=== PATIENT | male | born 1940 | race Caucasian/White ===

== ENCOUNTER 2017-03-15 05:36 | Observation (INO) | payer OTHER ==
[~2017-03-15] VITALS: Ht 170.2 cm; Wt 70.3 kg
[~2017-03-15 05:36] MED LIST: AEC81 PO; TRAM50TA4 PO
[2017-03-15] MEDS ORDERED: ASPIRIN 325 MG TABLET ONE (05:50)
[2017-03-15 06:03] LABS: BASOPHILS % (AUTO) 0.7 % (0.0-5.0); EOSINOPHILS % (AUTO) 1.1 % (0.0-8.0); HEMATOCRIT 47.3 % (42-54); LYMPHOCYTES % (AUTO) 11.5 % (21.0-51.0); MEAN CORPUSCULAR HEMOGLOBIN 30.2 pg (27.0-33.0); MEAN CORPUSCULAR HGB CONC 33.8 g/dL (32.0-36.0); MEAN CORPUSCULAR VOLUME 89.4 fL (79-99); MONOCYTES % (AUTO) 14.6 % (3.0-13.0); NEUTROPHILS % (AUTO) 72.1 % (40.0-77.0); PLATELET COUNT (AUTO) 236 K/uL (130-400); RED BLOOD CELL COUNT(AUTO) 5.29 MIL/uL (4.50-6.20); RED CELL DISTRIBUTION WIDTH 15.1 % (11.0-15.5); WHITE BLOOD COUNT (AUTO) 15.6 K/uL (4.8-10.8)
[2017-03-15 06:29] LABS: CREATINE KINASE MB < 0.5 ng/mL (0.5-3.6); CREATINE KINASE, TOTAL 78 U/L (21-232)
[2017-03-15] MEDS ORDERED: NITROGLYCERIN 1GM/1 INCH PACKET TD ONE (06:33)
[2017-03-15 06:38] LABS: CREATININE 1.1 mg/dL (0.5-1.5); POTASSIUM 4.3 mmol/L (3.5-5.1)
[2017-03-15 06:43] LABS: ALBUMIN 3.6 g/dL (3.5-5.0); BILIRUBIN,TOTAL 1.1 mg/dL (0.2-1.0); TOTAL PROTEIN, SERUM 8.3 g/dL (6.0-8.3)
[2017-03-15] MEDS ORDERED: IPRATROPIUM/ALBUTEROL SULFATE 3 ML SOLUTION IH ONE ×2 (06:52→10:45)
[2017-03-15] MEDS ORDERED: METHYLPREDNISOLONE SOD SUCC 125MG/2ML VIAL ONE (07:10)
[2017-03-15] MEDS ORDERED: AZITHROMYCIN 250 MG TABLET PO ONE (07:11)
[2017-03-15 08:54] VITALS: BP 132/85
[2017-03-15] MEDS ORDERED: HYDRALAZINE HCL 20 MG/ML VIAL IV PRN (09:45)
[2017-03-15] MEDS ORDERED: ACETAMINOPHEN-CODEINE 300/30MG TAB PO PRN (09:45)
[2017-03-15] MEDS: METHYLPREDNISOLONE SOD SUCC 125MG/2ML VIAL IV SCH ×2 (09:45→16:46)
[2017-03-15] MEDS ORDERED: LACTULOSE 20 GM/30 ML UDCUP PO PRN (09:45)
[2017-03-15] MEDS ORDERED: MAG HYDROX/AL HYDROX/SIMETH ES 30 ML SUSP UDCUP PO PRN (09:45)
[2017-03-15] MEDS ORDERED: ACETAMINOPHEN 325 MG TAB PO PRN ×2 (09:45)
[2017-03-15] MEDS ORDERED: ONDANSETRON HCL 4 MG/2 ML VIAL IV PRN (09:45)
[2017-03-15] MEDS ORDERED: NITROGLYCERIN 0.4 MG SL TAB SL PRN (09:45)
[2017-03-15] MEDS ORDERED: MORPHINE SULFATE 4 MG/1ML SYG IV PRN (09:45)
[2017-03-15] MEDS ORDERED: MORPHINE SULFATE 2 MG/ML 1ML SYG IV PRN (09:45)
[2017-03-15] MEDS: ACETAMINOPHEN-CODEINE 300/30MG TAB PO PRN (10:09)
[2017-03-15] MEDS: IPRATROPIUM/ALBUTEROL SULFATE 3 ML SOLUTION IH SCH ×2 (10:40→18:26)
[2017-03-15] MEDS: DOXYCYCLINE 100MG+NS 250ML 250 ML IV SCH ×2 (10:45→20:33)
[2017-03-15 11:36] VITALS: BP 128/88
[2017-03-15 11:54] LABS: CREATINE KINASE MB < 0.5 ng/mL (0.5-3.6); CREATINE KINASE, TOTAL 54 U/L (21-232); MYOGLOBIN 52 ng/mL (10-92); TROPONIN I < 0.04 ng/mL (0.00-0.06)
[2017-03-15] MEDS: SODIUM CHLORIDE 0.9% 1000ML 1,000 ML IV SCH ×2 (12:48→23:26)
[2017-03-15 16:09] VITALS: BP 106/63
[2017-03-15 18:38] LABS: CREATINE KINASE MB < 0.5 ng/mL (0.5-3.6); CREATINE KINASE, TOTAL 54 U/L (21-232); MYOGLOBIN 44 ng/mL (10-92); TROPONIN I < 0.04 ng/mL (0.00-0.06)
[2017-03-15 19:00] VITALS: BP 146/97
[2017-03-15] MEDS: METOPROLOL TARTRATE 25 MG TAB PO SCH (20:33)
[2017-03-15] MEDS: FAMOTIDINE/PF 20 MG/2 ML VIAL IV SCH (20:33)
[2017-03-15 23:00] VITALS: BP 110/71
[2017-03-16] MEDS: IPRATROPIUM/ALBUTEROL SULFATE 3 ML SOLUTION IH SCH ×4 (00:02→19:08)
[2017-03-16] MEDS: METHYLPREDNISOLONE SOD SUCC 125MG/2ML VIAL IV SCH ×2 (01:07→08:14)
[2017-03-16 03:00] VITALS: BP 107/66
[2017-03-16] MEDS: SODIUM CHLORIDE 0.9% 1000ML 1,000 ML IV SCH (06:13)
[2017-03-16 06:34] LABS: HEMATOCRIT 40.7 % (42-54); MEAN CORPUSCULAR HEMOGLOBIN 29.9 pg (27.0-33.0); MEAN CORPUSCULAR HGB CONC 33.6 g/dL (32.0-36.0); MEAN CORPUSCULAR VOLUME 89.1 fL (79-99); PLATELET COUNT (AUTO) 195 K/uL (130-400); RED BLOOD CELL COUNT(AUTO) 4.57 MIL/uL (4.50-6.20); RED CELL DISTRIBUTION WIDTH 14.8 % (11.0-15.5); WHITE BLOOD COUNT (AUTO) 25.7 K/uL (4.8-10.8)
[2017-03-16 06:52] LABS: CREATININE 1.3 mg/dL (0.5-1.5); POTASSIUM 3.9 mmol/L (3.5-5.1)
[2017-03-16 07:00] VITALS: BP 132/76
[2017-03-16 07:59] LABS: B-TYPE NATRIURETIC PEPTIDE 107 pg/mL (0-100)
[2017-03-16] MEDS: FAMOTIDINE/PF 20 MG/2 ML VIAL IV SCH ×2 (08:07→19:43)
[2017-03-16] MEDS: ASPIRIN 81 MG EC TAB PO SCH (08:07)
[2017-03-16] MEDS: METOPROLOL TARTRATE 25 MG TAB PO SCH ×2 (08:07→19:44)
[2017-03-16] MEDS: DOXYCYCLINE 100MG+NS 250ML 250 ML IV SCH ×2 (08:14→19:44)
[2017-03-16 11:00] VITALS: BP 113/76
[2017-03-16 15:37] VITALS: BP 133/94
[2017-03-16] MEDS: METHYLPREDNISOLONE SOD SUCC 40MG/ML 1ML IVP SCH ×2 (17:22→23:41)
[2017-03-16 19:00] VITALS: BP 126/93
[2017-03-16] MEDS: GUAIFENESIN-DM 200/20 MG 10 ML PO PRN ×2 (19:43→23:41)
[2017-03-16] MEDS: ACETAMINOPHEN-CODEINE 300/30MG TAB PO PRN (19:44)
[2017-03-16 23:00] VITALS: BP 135/79
[2017-03-17] MEDS ORDERED: IPRATROPIUM 0.5 MG/2.5 ML INH IH ONE (00:18)
[2017-03-17] MEDS ORDERED: ALBUTEROL SULFATE 0.083% 2.5 MG/3 ML INH IH ONE (00:18)
[2017-03-17 03:00] VITALS: BP 158/95
[2017-03-17] MEDS: IPRATROPIUM/ALBUTEROL SULFATE 3 ML SOLUTION IH SCH ×2 (07:10)
[2017-03-17 07:25] LABS: HEMATOCRIT 39.6 % (42-54); MEAN CORPUSCULAR HEMOGLOBIN 30.3 pg (27.0-33.0); MEAN CORPUSCULAR HGB CONC 34.2 g/dL (32.0-36.0); MEAN CORPUSCULAR VOLUME 88.5 fL (79-99); PLATELET COUNT (AUTO) 218 K/uL (130-400); RED BLOOD CELL COUNT(AUTO) 4.48 MIL/uL (4.50-6.20); RED CELL DISTRIBUTION WIDTH 15.2 % (11.0-15.5); WHITE BLOOD COUNT (AUTO) 25.8 K/uL (4.8-10.8)
[2017-03-17 07:41] LABS: CREATININE 1.2 mg/dL (0.5-1.5); POTASSIUM 4.2 mmol/L (3.5-5.1)
[2017-03-17 08:00] VITALS: BP 141/81
[2017-03-17] MEDS ORDERED: ENOXAPARIN SODIUM 40 MG/0.4 ML SYRINGE SQ SCH (09:00)
[2017-03-17] MEDS: ASPIRIN 81 MG EC TAB PO SCH (09:07)
[2017-03-17] MEDS: FAMOTIDINE/PF 20 MG/2 ML VIAL IV SCH (09:07)
[2017-03-17] MEDS: METOPROLOL TARTRATE 25 MG TAB PO SCH (09:07)
[2017-03-17] MEDS: METHYLPREDNISOLONE SOD SUCC 40MG/ML 1ML IVP SCH (09:07)
[2017-03-17] MEDS: DOXYCYCLINE 100MG+NS 250ML 250 ML IV SCH (09:07)
[2017-03-17] MEDS ORDERED: PRED20TA3 PO (10:13)
[2017-03-17] MEDS ORDERED: DOXY100T2 PO (10:13)
== END 2017-03-17 11:05 | disposition home or self-care (01) ==
LOC: EDH 05:36 → EDHIP 07:20 → 3CH 08:36
PROVIDERS: ADMIT Internal Medicine; ATTEND Internal Medicine
DX: J20.9 Acute bronchitis, unspecified (principal); I25.10 Atherosclerotic heart disease of native coronary artery without angina pectoris; R53.81 Other malaise; I10 Essential (primary) hypertension; Z72.0 Tobacco use; Z95.1 Presence of aortocoronary bypass graft; Z95.5 Presence of coronary angioplasty implant and graft
CPT/HCPCS: 36415 ×3; 71045; 80048 ×2; 80053; 82550 ×3; 82553 ×3; 83874 ×2; 83880 ×2; 84484 ×3; 85025; 85027 ×2; 86141; 87633; 93005; 93306; 94640 ×9; 94664; 96361; 96365; 96366 ×3; 96372; 96375 ×2; 96376 ×2; 99285; A4510; G0378 ×52; J1650; J2920 ×3; J2930 ×4; J3490 ×7; J7030; 71010

== ENCOUNTER 2017-05-01 19:48 | Observation (INO) | payer OTHER ==
[~2017-05-01] VITALS: Ht 170.2 cm; Wt 68.5 kg
[~2017-05-01 19:48] MED LIST changes: +DOXY100T2 PO; +PRED20TA3 PO
[2017-05-01 20:22] LABS: BASOPHILS % (AUTO) 0.4 % (0.0-5.0); EOSINOPHILS % (AUTO) 0.8 % (0.0-8.0); HEMATOCRIT 45.7 % (42-54); LYMPHOCYTES % (AUTO) 10.1 % (21.0-51.0); MEAN CORPUSCULAR HEMOGLOBIN 29.4 pg (27.0-33.0); MEAN CORPUSCULAR HGB CONC 33.8 g/dL (32.0-36.0); MEAN CORPUSCULAR VOLUME 87.2 fL (79-99); MONOCYTES % (AUTO) 7.3 % (3.0-13.0); NEUTROPHILS % (AUTO) 81.4 % (40.0-77.0); PLATELET COUNT (AUTO) 505 K/uL (130-400); RED BLOOD CELL COUNT(AUTO) 5.25 MIL/uL (4.50-6.20); RED CELL DISTRIBUTION WIDTH 15.7 % (11.0-15.5); WHITE BLOOD COUNT (AUTO) 19.9 K/uL (4.8-10.8)
[2017-05-01 20:35] LABS: CREATININE 1.5 mg/dL (0.5-1.5); POTASSIUM 3.5 mmol/L (3.5-5.1)
[2017-05-01 20:36] LABS: INR 1.01 (0.85-1.15); PARTIAL THROMBOPLASTIN TIME 31.5 SEC (26.3-35.5); PROTHROMBIN TIME 10.6 SEC (9.6-11.6)
[2017-05-01 20:40] LABS: ALBUMIN 2.9 g/dL (3.5-5.0); BILIRUBIN,TOTAL 0.8 mg/dL (0.2-1.0); TOTAL PROTEIN, SERUM 8.1 g/dL (6.0-8.3)
[2017-05-01] MEDS ORDERED: METRONIDAZOLE 500MG/100ML BAG 100 ML ONE (22:32)
[2017-05-01] MEDS ORDERED: ONDANSETRON HCL 4 MG/2 ML VIAL ONE (22:32)
[2017-05-01] MEDS ORDERED: MORPHINE SULFATE 4 MG/1ML SYG ONE (22:33)
[2017-05-02] MEDS ORDERED: MEROPENEM 1 GM VIAL ONE (03:39)
[2017-05-02] MEDS ORDERED: SODIUM CHLORIDE 0.9% 1000ML 1,000 ML IV ONE (03:39)
[2017-05-02 04:38] VITALS: BP 119/73
[2017-05-02 05:30] LABS: HEMATOCRIT 41.4 % (42-54); MEAN CORPUSCULAR HEMOGLOBIN 29.5 pg (27.0-33.0); MEAN CORPUSCULAR HGB CONC 34.1 g/dL (32.0-36.0); MEAN CORPUSCULAR VOLUME 86.4 fL (79-99); PLATELET COUNT (AUTO) 373 K/uL (130-400); RED BLOOD CELL COUNT(AUTO) 4.78 MIL/uL (4.50-6.20); RED CELL DISTRIBUTION WIDTH 15.7 % (11.0-15.5); WHITE BLOOD COUNT (AUTO) 18.5 K/uL (4.8-10.8)
[2017-05-02 05:38] LABS: CREATININE 1.5 mg/dL (0.5-1.5)
[2017-05-02 05:40] LABS: INR 1.02 (0.85-1.15); PARTIAL THROMBOPLASTIN TIME 30.7 SEC (26.3-35.5); PROTHROMBIN TIME 10.7 SEC (9.6-11.6)
[2017-05-02] MEDS ORDERED: MORPHINE SULFATE 2 MG/ML 1ML SYG ONE (05:54)
[2017-05-02 06:18] LABS: BAND NEUTROPHILS % (MANUAL) 4 % (0-2); EOSINOPHILS % (MANUAL) 2 % (1-6); LYMPHOCYTES % (MANUAL) 12 % (22-44); MONOCYTES % (MANUAL) 9 % (2-9); REACTIVE LYMPHOCYTES 1 % (0-0); SEGMENTED NEUTROPHILS % 72 % (40-70)
[2017-05-02 06:19] LABS: MAN.DIFF COMMENT-IMPRESSION MANUAL DIFFERENTIAL; PLATELET MORPHOLOGY COMMENT ADEQUATE
[2017-05-02] MEDS ORDERED: IPRATROPIUM/ALBUTEROL SULFATE 3 ML SOLUTION IH PRN (07:15)
[2017-05-02 07:38] VITALS: BP 114/65
[2017-05-02 11:14] VITALS: BP 100/61
[2017-05-02] MEDS: MORPHINE SULFATE 2 MG/ML 1ML SYG IVP PRN ×2 (13:59→20:16)
[2017-05-02 16:29] VITALS: BP 107/69
[2017-05-02] MEDS ORDERED: PEG 3350/NA SULF,BICARB,CL/KCL 4000 ML SOLN PO SCH (17:00)
[2017-05-02 19:08] VITALS: BP 105/56
[2017-05-02 23:47] VITALS: BP 120/75
[2017-05-03 03:35] VITALS: BP 120/69
[2017-05-03] MEDS: MORPHINE SULFATE 2 MG/ML 1ML SYG IVP PRN ×4 (03:46→21:23)
[2017-05-03] MEDS ORDERED: MEROPENEM 1 GM VIAL IVP SCH (04:00)
[2017-05-03 04:30] LABS: HEMATOCRIT 38.9 % (42-54); MEAN CORPUSCULAR HEMOGLOBIN 29.7 pg (27.0-33.0); MEAN CORPUSCULAR HGB CONC 34.2 g/dL (32.0-36.0); MEAN CORPUSCULAR VOLUME 86.8 fL (79-99); PLATELET COUNT (AUTO) 351 K/uL (130-400); RED BLOOD CELL COUNT(AUTO) 4.48 MIL/uL (4.50-6.20); RED CELL DISTRIBUTION WIDTH 15.5 % (11.0-15.5); WHITE BLOOD COUNT (AUTO) 13.2 K/uL (4.8-10.8)
[2017-05-03 04:40] LABS: CREATININE 1.1 mg/dL (0.5-1.5); POTASSIUM 3.8 mmol/L (3.5-5.1)
[2017-05-03 07:27] VITALS: BP 138/68
[2017-05-03 11:31] VITALS: BP 108/81
[2017-05-03 16:33] VITALS: BP 137/92
[2017-05-03] MEDS ORDERED: PEG 3350/NA SULF,BICARB,CL/KCL 4000 ML SOLN PO ONE (17:45)
[2017-05-03 19:10] VITALS: BP 168/108
[2017-05-03 20:54] VITALS: BP 161/88
[2017-05-03] MEDS ORDERED: MORPHINE SULFATE 2 MG/ML 1ML SYG IVP PRN (21:15)
[2017-05-03] MEDS ORDERED: ONDANSETRON HCL 4 MG/2 ML VIAL IVP PRN (21:15)
[2017-05-03] MEDS ORDERED: ACETAMINOPHEN 325 MG TAB PO PRN (21:15)
[2017-05-03] MEDS ORDERED: CLONIDINE HCL 0.1 MG TABLET PO PRN (21:15)
[2017-05-03] MEDS ORDERED: METRONIDAZOLE 500MG/100ML BAG 100 ML IVPB SCH (23:00)
[2017-05-03] MEDS: IPRATROPIUM/ALBUTEROL SULFATE 3 ML SOLUTION IH SCH (23:06)
[2017-05-04] VITALS (15 sets, daily range): BP systolic 79–148; BP diastolic 48–99
[2017-05-04] MEDS: IPRATROPIUM/ALBUTEROL SULFATE 3 ML SOLUTION IH SCH ×2 (06:43→11:08)
[2017-05-04] MEDS ORDERED: PROPOFOL 10 MG/ML 20ML VIAL IV ONE (12:50)
[2017-05-04] MEDS ORDERED: PHENYLEPHRINE HCL 10 MG/ML 1ML VIAL IV ONE (12:58)
[2017-05-04] MEDS ORDERED: METRONIDAZOLE 500 MG TABLET PO SCH (15:08)
[2017-05-05] MEDS ORDERED: LEVOFLOXACIN 500 MG TABLET PO SCH (09:00)
== END 2017-05-04 18:35 | disposition home or self-care (01) ==
LOC: EDH 19:48 → EDHIP 05-02 00:20 → 2AH 05-02 04:30 → 3AH 05-03 19:34
PROVIDERS: ADMIT Family Medicine; ATTEND Family Medicine
DX: K92.1 Melena (principal); K63.89 Other specified diseases of intestine; K57.30 Diverticulosis of large intestine without perforation or abscess without bleeding; C34.90 Malignant neoplasm of unspecified part of unspecified bronchus or lung; R55 Syncope and collapse; R10.9 Unspecified abdominal pain; I10 Essential (primary) hypertension; I25.10 Atherosclerotic heart disease of native coronary artery without angina pectoris; Z85.118 Personal history of other malignant neoplasm of bronchus and lung; Z87.891 Personal history of nicotine dependence; Z90.49 Acquired absence of other specified parts of digestive tract; Z95.5 Presence of coronary angioplasty implant and graft
CPT/HCPCS: 36415 ×3; 45380; 74176; 80048 ×2; 80053; 85025 ×2; 85027; 85610 ×2; 85730 ×2; 86850; 86900; 86901; 87046; 87205; 87507; 88305; 94640 ×3; 94664; 96374; 96376 ×2; 97039; 97116 ×2; 97161; 99285; A4510; G0378 ×66; G8978; G8979; G8980; G8981; G8982; G8983; J2185; J2270; J2370; J2405; J2704; J3490; J7030

== ENCOUNTER 2017-11-24 09:44 | Observation (INO) | payer OTHER ==
[2017-11-23 15:31] LABS: APPEARANCE,URINE CLEAR (CLEAR); BILIRUBIN,URINE MODERATE (NEGATIVE); COLOR,URINE YELLOW (YELLOW); GLUCOSE, URINE (UA) NEGATIVE (NEGATIVE); KETONES,URINE 5 mg/dL (NEGATIVE); LEUKOCYTE ESTERASE ,URINE MODERATE (NEGATIVE); NITRATE,URINE POSITIVE (NEGATIVE); OCCULT BLOOD,URINE LARGE (NEGATIVE); PH,URINE 6.5 (5.0-8.0); PROTEIN,URINE >=300 (NEGATIVE)
[2017-11-23 15:40] VITALS: BP 124/79
[2017-11-23 15:52] LABS: BACTERIA,URINE Few /HPF (None Seen); RBC,URINE TNTC /HPF (0-1)
[2017-11-23 15:53] LABS: WBC,URINE 26-50 /HPF (0-1)
[2017-11-23 15:54] LABS: SQUAMOUS EPITHELIAL CELL,UR None Seen /HPF (0-2)
[2017-11-23 16:18] LABS: HEMATOCRIT 36.7 % (42-54); MEAN CORPUSCULAR HEMOGLOBIN 31.7 pg (27.0-33.0); MEAN CORPUSCULAR HGB CONC 34.1 g/dL (32.0-36.0); MEAN CORPUSCULAR VOLUME 92.9 fL (79-99); PLATELET COUNT (AUTO) 231 K/uL (130-400); RED BLOOD CELL COUNT(AUTO) 3.95 MIL/uL (4.50-6.20); RED CELL DISTRIBUTION WIDTH 15.2 % (11.0-15.5); WHITE BLOOD COUNT (AUTO) 5.8 K/uL (4.8-10.8)
[2017-11-23 16:39] LABS: INR 0.96 (0.85-1.15); PROTHROMBIN TIME 10.1 SEC (9.6-11.6)
[2017-11-23 16:41] LABS: CREATININE 1.4 mg/dL (0.5-1.5)
[~2017-11-24] VITALS: Ht 170.2 cm; Wt 66.6 kg
[2017-11-24] VITALS (18 sets, daily range): BP systolic 107–136; BP diastolic 70–83
[~2017-11-24 09:44] MED LIST changes: +CEFAZOLIN SODIUM 1 GM VIAL IVP SCH; -DOXY100T2 PO; +FAMOTIDINE/PF 20 MG/2 ML VIAL IV ONE; +LACTATED RINGERS 1000ML 1,000 ML IV SCH; -PRED20TA3 PO; -TRAM50TA4 PO
[2017-11-24] MEDS ORDERED: IOHEXOL-350 50ML VIAL IV ONE ×2 (11:48)
[2017-11-24] MEDS ORDERED: MIDAZOLAM HCL 1 MG/ML 2ML VIAL ONE (12:11)
[2017-11-24] MEDS ORDERED: LIDOCAINE HCL MPF 1% 5ML VIAL ONE (12:13)
[2017-11-24] MEDS ORDERED: PROPOFOL 10 MG/ML 20ML VIAL IV ONE (12:13)
[2017-11-24] MEDS ORDERED: ROCURONIUM 10MG/1ML SYR 10 MG/ML ML ONE (12:13)
[2017-11-24] MEDS ORDERED: FENTANYL CITRATE PF 50 MCG/1 ML 2ML VIAL ONE (12:13)
[2017-11-24] MEDS ORDERED: ZOSYN 3.375GM+NS 50ML 50 ML IV ONE (12:21)
[2017-11-24] MEDS ORDERED: SODIUM CHLORIDE 0.9% 10 ML VIAL ONE (12:22)
[2017-11-24] MEDS ORDERED: PHENYLEPHRINE HCL 10 MG/ML 1ML VIAL IV ONE (12:22)
[2017-11-24] MEDS ORDERED: DEXAMETHASONE SOD PHOSPHATE 10MG/ML 1ML VIAL ONE (12:50)
[2017-11-24] MEDS ORDERED: ONDANSETRON HCL 4 MG/2 ML VIAL ONE (12:51)
[2017-11-24] MEDS ORDERED: ONDANSETRON HCL 4 MG/2 ML VIAL IVP PRN (15:30)
[2017-11-24] MEDS ORDERED: ACETAMINOPHEN 325 MG TAB PO PRN (15:30)
[2017-11-24] MEDS ORDERED: ACETAMINOPHEN-CODEINE 300/30MG TAB PO PRN (15:30)
[2017-11-24] MEDS ORDERED: MEPERIDINE-PF 75 MG/ML SYG IM PRN (15:30)
[2017-11-24] MEDS: SODIUM CHLORIDE 0.9% 1000ML 1,000 ML IV SCH (16:35)
[2017-11-24] MEDS: CITRIC ACID/SODIUM CITRATE 30 ML UDCUP PO SCH ×2 (17:31→23:22)
[2017-11-24] MEDS: ZOSYN 3.375GM+NS 50ML 50 ML IV SCH (20:53)
[2017-11-25] VITALS (7 sets, daily range): BP systolic 102–119; BP diastolic 60–71
[2017-11-25] MEDS: ZOSYN 3.375GM+NS 50ML 50 ML IV SCH ×3 (03:59→20:26)
[2017-11-25] MEDS: SODIUM CHLORIDE 0.9% 1000ML 1,000 ML IV SCH ×3 (04:00→21:30)
[2017-11-25 04:42] LABS: HEMATOCRIT 31.4 % (42-54); MEAN CORPUSCULAR HEMOGLOBIN 32.4 pg (27.0-33.0); MEAN CORPUSCULAR HGB CONC 35.5 g/dL (32.0-36.0); MEAN CORPUSCULAR VOLUME 91.3 fL (79-99); PLATELET COUNT (AUTO) 196 K/uL (130-400); RED BLOOD CELL COUNT(AUTO) 3.44 MIL/uL (4.50-6.20); RED CELL DISTRIBUTION WIDTH 14.8 % (11.0-15.5); WHITE BLOOD COUNT (AUTO) 8.6 K/uL (4.8-10.8)
[2017-11-25 04:53] LABS: CREATININE 1.5 mg/dL (0.5-1.5); POTASSIUM 4.2 mmol/L (3.5-5.1)
[2017-11-25] MEDS: CITRIC ACID/SODIUM CITRATE 30 ML UDCUP PO SCH ×4 (05:49→23:28)
[2017-11-25] MEDS ORDERED: ASPIRIN 81 MG EC TAB PO SCH (09:00)
[2017-11-26 03:40] VITALS: BP 110/61
[2017-11-26] MEDS: ZOSYN 3.375GM+NS 50ML 50 ML IV SCH (04:32)
[2017-11-26] MEDS: CITRIC ACID/SODIUM CITRATE 30 ML UDCUP PO SCH (06:21)
[2017-11-26] MEDS: SODIUM CHLORIDE 0.9% 1000ML 1,000 ML IV SCH (07:30)
[2017-11-26 07:57] VITALS: BP 114/75
== END 2017-11-26 11:30 | disposition home or self-care (01) ==
LOC: DAH 09:44 → DAHIP 09:45 → DAH 09:45 → 3CH 14:57
PROVIDERS: ADMIT Urology; ATTEND Urology
DX: N13.2 Hydronephrosis with renal and ureteral calculous obstruction (principal); N18.9 Chronic kidney disease, unspecified; I25.10 Atherosclerotic heart disease of native coronary artery without angina pectoris; I21.3 ST elevation (STEMI) myocardial infarction of unspecified site; D64.9 Anemia, unspecified; M54.5 Low back pain; E44.0 Moderate protein-calorie malnutrition; K21.9 Gastro-esophageal reflux disease without esophagitis; I13.10 Hypertensive heart and chronic kidney disease without heart failure, with stage 1 through stage 4 chronic kidney disease, or unspecified chronic kidney disease; E11.22 Type 2 diabetes mellitus with diabetic chronic kidney disease; I65.23 Occlusion and stenosis of bilateral carotid arteries; Z95.1 Presence of aortocoronary bypass graft; F41.9 Anxiety disorder, unspecified; Z98.890 Other specified postprocedural states; Z90.49 Acquired absence of other specified parts of digestive tract; Z95.5 Presence of coronary angioplasty implant and graft; Z85.118 Personal history of other malignant neoplasm of bronchus and lung; Z87.891 Personal history of nicotine dependence; Z79.899 Other long term (current) drug therapy; Z91.19 Patient's noncompliance with other medical treatment and regimen
CPT/HCPCS: 36415 ×2; 52356; 71046; 74420; 80048 ×2; 81001; 82360; 85027 ×2; 85610; 85730; 87088; 88300; 93005; 96365; 96366 ×3; 96375; A4218; A4354; A4358; A4600; C1758 ×2; C1769; C2617; G0378 ×50; J1100; J2250; J2370; J2405 ×2; J2543 ×6; J2704; J3010; J3490 ×2; J7030 ×3; J7120 ×2; Q9967; J0690

== ENCOUNTER 2019-09-22 18:23 | Emergency (ER) | payer OTHER ==
[~2019-09-22 18:23] MED LIST changes: -CEFAZOLIN SODIUM 1 GM VIAL IVP SCH; -FAMOTIDINE/PF 20 MG/2 ML VIAL IV ONE; -LACTATED RINGERS 1000ML 1,000 ML IV SCH
== END 2019-09-22 18:55 | disposition home or self-care (01) ==
LOC: EDH 18:23
DX: Z00.00 Encounter for general adult medical examination without abnormal findings (principal); I25.10 Atherosclerotic heart disease of native coronary artery without angina pectoris; I10 Essential (primary) hypertension; Z90.49 Acquired absence of other specified parts of digestive tract; Z87.891 Personal history of nicotine dependence

== ENCOUNTER 2020-02-12 22:10 | Inpatient (IN) | payer OTHER ==
[~2020-02-12] VITALS: Ht 170.2 cm; Wt 54.4 kg
[2020-02-12] MEDS ORDERED: LEVETIRACETAM 500 MG/5 ML SD VIAL IV ONE (22:56)
[2020-02-12 23:06] LABS: BASOPHILS % (AUTO) 0.8 % (0.0-5.0); EOSINOPHILS % (AUTO) 6.5 % (0.0-8.0); HEMATOCRIT 34.9 % (42-54); LYMPHOCYTES % (AUTO) 14.8 % (21.0-51.0); MEAN CORPUSCULAR HEMOGLOBIN 26.5 pg (27.0-33.0); MEAN CORPUSCULAR HGB CONC 31.2 g/dL (32.0-36.0); MEAN CORPUSCULAR VOLUME 84.7 fL (79-99); MONOCYTES % (AUTO) 12.4 % (3.0-13.0); NEUTROPHILS % (AUTO) 64.9 % (40.0-77.0); PLATELET COUNT (AUTO) 343 K/uL (130-400); RED BLOOD CELL COUNT(AUTO) 4.12 MIL/uL (4.50-6.20); RED CELL DISTRIBUTION WIDTH 16.9 % (11.0-15.5); WHITE BLOOD COUNT (AUTO) 11.2 K/uL (4.8-10.8)
[2020-02-12] MEDS ORDERED: ALBUTEROL SULFATE 0.083% 2.5 MG/3 ML INH IH ONE (23:13)
[2020-02-12 23:22] LABS: CREATININE 1.2 mg/dL (0.5-1.5); INR 0.93 (0.85-1.15); PARTIAL THROMBOPLASTIN TIME 26.6 SEC (26.3-35.5); POTASSIUM 4.1 mmol/L (3.5-5.1); PROTHROMBIN TIME 10.1 SEC (9.6-11.6)
[2020-02-12 23:27] LABS: ALBUMIN 2.4 g/dL (3.5-5.0); BILIRUBIN,TOTAL 0.2 mg/dL (0.2-1.0); TOTAL PROTEIN, SERUM 7.8 g/dL (6.0-8.3)
[2020-02-12 23:51] LABS: B-TYPE NATRIURETIC PEPTIDE 20 pg/mL (0-100)
[2020-02-12 23:59] LABS: APPEARANCE,URINE Clear (CLEAR); BILIRUBIN,URINE Negative (NEGATIVE); COLOR,URINE Yellow (YELLOW); GLUCOSE, URINE (UA) Negative (NEGATIVE); KETONES,URINE Negative (NEGATIVE); LEUKOCYTE ESTERASE ,URINE Trace (NEGATIVE); NITRATE,URINE Negative (NEGATIVE); OCCULT BLOOD,URINE Negative (NEGATIVE); PROTEIN,URINE Negative (NEGATIVE)
[2020-02-13 00:07] LABS: BACTERIA,URINE None Seen /HPF (None Seen); MUCUS,URINE Few LPF (None Seen); RBC,URINE None Seen /HPF (0-1); SQUAMOUS EPITHELIAL CELL,UR Few /HPF (0-2); WBC,URINE 0-1 /HPF (0-1)
[2020-02-13] MEDS ORDERED: POTASSIUM CHLORIDE 20 MEQ ERTAB PO PRN (01:00)
[2020-02-13] MEDS: METHYLPREDNISOLONE SOD SUCC 40MG/ML 1ML IVP SCH ×3 (01:00→17:39)
[2020-02-13] MEDS ORDERED: POTASSIUM CHLORIDE 10% ELIXIR 20 MEQ/15 ML UDCUP PO PRN (01:00)
[2020-02-13] MEDS ORDERED: ONDANSETRON HCL 4 MG/2 ML VIAL IV PRN (01:00)
[2020-02-13] MEDS ORDERED: LACTULOSE 20 GM/30 ML UDCUP PO PRN (01:00)
[2020-02-13] MEDS: LACTATED RINGERS 1000ML 1,000 ML IV SCH ×2 (01:00→11:00)
[2020-02-13] MEDS ORDERED: MAG HYDROX/AL HYDROX/SIMETH ES 30 ML SUSP UDCUP PO PRN (01:00)
[2020-02-13] MEDS ORDERED: MORPHINE SULFATE 2 MG/ML 1ML SYG IV PRN (01:00)
[2020-02-13] MEDS ORDERED: ALBUTEROL SULFATE 0.083% 2.5 MG/3 ML INH IH PRN (01:00)
[2020-02-13] MEDS ORDERED: POTASSIUM CHLORIDE 20MEQ/100ML 100 ML IV PRN (01:00)
[2020-02-13] MEDS ORDERED: ACETAMINOPHEN 325 MG TAB PO PRN (01:00)
[2020-02-13] MEDS ORDERED: LIDOCAINE HCL-MPF 1% 2ML VIAL IV PRN (01:00)
[2020-02-13] MEDS ORDERED: METHYLPREDNISOLONE SOD SUCC 40MG/ML 1ML ONE (01:30)
[2020-02-13] MEDS ORDERED: ONDANSETRON HCL 4 MG/2 ML VIAL ONE (02:04)
[2020-02-13 03:15] VITALS: BP 120/63
[2020-02-13] MEDS: ZOSYN 3.375GM+NS 50ML 50 ML IV SCH ×3 (04:27→21:34)
[2020-02-13 09:16] VITALS: BP 117/74
[2020-02-13] MEDS: FAMOTIDINE 20MG TAB 20 MG TAB PO SCH ×2 (09:25→20:20)
[2020-02-13] MEDS: ENOXAPARIN SODIUM 40 MG/0.4 ML SYRINGE SQ SCH (09:25)
[2020-02-13] MEDS ORDERED: GUAIFENESIN-DM 200/20 MG 10 ML PO PRN (11:30)
[2020-02-13] MEDS ORDERED: IPRATROPIUM 0.5 MG/2.5 ML INH IH PRN (11:30)
[2020-02-13 12:01] VITALS: BP 119/74
[2020-02-13] MEDS: FUROSEMIDE 10 MG/ML 2ML VIAL IV SCH (12:06)
[2020-02-13 16:20] VITALS: BP 137/83
[2020-02-13 20:25] VITALS: BP 131/72
[2020-02-13] MEDS: DiphenhydrAMINE HCL 50 MG/ML VIAL IV PRN (21:58)
[2020-02-13 23:34] VITALS: BP 147/89
[2020-02-14] MEDS: FUROSEMIDE 10 MG/ML 2ML VIAL IV SCH (00:52)
[2020-02-14] MEDS: METHYLPREDNISOLONE SOD SUCC 40MG/ML 1ML IVP SCH ×3 (00:52→17:13)
[2020-02-14 04:34] VITALS: BP 140/74
[2020-02-14] MEDS: ZOSYN 3.375GM+NS 50ML 50 ML IV SCH ×3 (05:34→20:16)
[2020-02-14 05:36] LABS: BASOPHILS % (AUTO) 0.1 % (0.0-5.0); HEMATOCRIT 33.6 % (42-54); LYMPHOCYTES % (AUTO) 5.7 % (21.0-51.0); MEAN CORPUSCULAR HEMOGLOBIN 26.3 pg (27.0-33.0); MEAN CORPUSCULAR HGB CONC 32.1 g/dL (32.0-36.0); NEUTROPHILS % (AUTO) 90.6 % (40.0-77.0); PLATELET COUNT (AUTO) 367 K/uL (130-400); RED CELL DISTRIBUTION WIDTH 16.3 % (11.0-15.5); WHITE BLOOD COUNT (AUTO) 17.2 K/uL (4.8-10.8)
[2020-02-14 05:54] LABS: ALBUMIN 2.4 g/dL (3.5-5.0); BILIRUBIN,TOTAL 0.1 mg/dL (0.2-1.0); CREATININE 1.2 mg/dL (0.5-1.5); MAGNESIUM 1.8 mg/dL (1.80-2.40); PHOSPHORUS 4.2 mg/dL (2.5-4.9); POTASSIUM 3.7 mmol/L (3.5-5.1); TOTAL PROTEIN, SERUM 7.5 g/dL (6.0-8.3)
[2020-02-14] MEDS: ASPIRIN 81 MG EC TAB PO SCH (08:57)
[2020-02-14] MEDS: FAMOTIDINE 20MG TAB 20 MG TAB PO SCH ×2 (08:57→20:16)
[2020-02-14] MEDS: ENOXAPARIN SODIUM 40 MG/0.4 ML SYRINGE SQ SCH (08:58)
[2020-02-14 09:12] VITALS: BP 132/80
[2020-02-14 12:28] VITALS: BP 111/73
[2020-02-14 18:25] VITALS: BP 111/79
[2020-02-14 19:00] VITALS: BP 146/69
[2020-02-14] MEDS: DiphenhydrAMINE HCL 50 MG/ML VIAL IV PRN (21:19)
[2020-02-14] MEDS: IPRATROPIUM 0.5 MG/2.5 ML INH IH SCH (23:00)
[2020-02-14] MEDS: ALBUTEROL SULFATE 0.083% 2.5 MG/3 ML INH IH SCH (23:00)
[2020-02-15] VITALS (7 sets, daily range): BP systolic 102–139; BP diastolic 68–89
[2020-02-15] MEDS ORDERED: IPRATROPIUM 0.5 MG/2.5 ML INH IH ONE (00:29)
[2020-02-15] MEDS ORDERED: ALBUTEROL SULFATE 0.083% 2.5 MG/3 ML INH IH ONE (00:29)
[2020-02-15] MEDS: ALBUTEROL SULFATE 0.083% 2.5 MG/3 ML INH IH SCH ×3 (03:01→10:56)
[2020-02-15] MEDS: ZOSYN 3.375GM+NS 50ML 50 ML IV SCH ×3 (04:20→19:47)
[2020-02-15 05:55] LABS: HEMATOCRIT 33.5 % (42-54); MEAN CORPUSCULAR HEMOGLOBIN 26.2 pg (27.0-33.0); MEAN CORPUSCULAR HGB CONC 31.3 g/dL (32.0-36.0); MEAN CORPUSCULAR VOLUME 83.5 fL (79-99); RED BLOOD CELL COUNT(AUTO) 4.01 MIL/uL (4.50-6.20); RED CELL DISTRIBUTION WIDTH 16.9 % (11.0-15.5); WHITE BLOOD COUNT (AUTO) 21.8 K/uL (4.8-10.8)
[2020-02-15 06:15] LABS: POTASSIUM 3.7 mmol/L (3.5-5.1)
[2020-02-15] MEDS: IPRATROPIUM 0.5 MG/2.5 ML INH IH SCH ×2 (06:42→10:56)
[2020-02-15] MEDS ORDERED: VANCOMYCIN PROTOCOL PER PHARMACY IV SCH (08:00)
[2020-02-15] MEDS ORDERED: VANCOMYCIN 1GM+NS 250ML 250 ML IV SCH (08:38)
[2020-02-15] MEDS ORDERED: COMPOUND IV REFRIGERATED 1 EACH IVSOLN MISC PRN (08:45)
[2020-02-15] MEDS: ASPIRIN 81 MG EC TAB PO SCH (09:43)
[2020-02-15] MEDS: ENOXAPARIN SODIUM 40 MG/0.4 ML SYRINGE SQ SCH (09:43)
[2020-02-15] MEDS: FAMOTIDINE 20MG TAB 20 MG TAB PO SCH ×2 (09:43→19:37)
[2020-02-15] MEDS: METHYLPREDNISOLONE SOD SUCC 40MG/ML 1ML IVP SCH ×2 (09:43→19:37)
[2020-02-15] MEDS: METOCLOPRAMIDE 5 MG TABLET PO SCH ×3 (11:30→19:37)
[2020-02-15] MEDS ORDERED: BENZONATATE 100 MG CAPSULE PO PRN (12:00)
[2020-02-15] MEDS: IPRATROPIUM/ALBUTEROL SULFATE 3 ML SOLUTION IH SCH ×2 (18:19→23:58)
[2020-02-15] MEDS: DiphenhydrAMINE HCL 50 MG/ML VIAL IV PRN (21:06)
[2020-02-16 03:27] VITALS: BP 130/89
[2020-02-16] MEDS: ZOSYN 3.375GM+NS 50ML 50 ML IV SCH ×3 (05:07→20:42)
[2020-02-16] MEDS: IPRATROPIUM/ALBUTEROL SULFATE 3 ML SOLUTION IH SCH ×3 (05:26→19:03)
[2020-02-16 08:07] VITALS: BP 129/81
[2020-02-16] MEDS: ASPIRIN 81 MG EC TAB PO SCH (08:28)
[2020-02-16] MEDS: METHYLPREDNISOLONE SOD SUCC 40MG/ML 1ML IVP SCH ×3 (08:28→20:43)
[2020-02-16] MEDS: ENOXAPARIN SODIUM 40 MG/0.4 ML SYRINGE SQ SCH (08:28)
[2020-02-16] MEDS: FAMOTIDINE 20MG TAB 20 MG TAB PO SCH ×2 (08:28→20:43)
[2020-02-16] MEDS: METOCLOPRAMIDE 5 MG TABLET PO SCH ×4 (08:31→20:45)
[2020-02-16] MEDS ORDERED: VANCOMYCIN 750MG + NS 250 ML IV SCH ×2 (09:00)
[2020-02-16 11:26] VITALS: BP 126/86
[2020-02-16 16:15] VITALS: BP 138/88
[2020-02-16] MEDS: GUAIFENESIN-CODEINE 5 ML SYRUP PO PRN (18:38)
[2020-02-16 19:41] VITALS: BP 118/80
[2020-02-16] MEDS: DiphenhydrAMINE HCL 50 MG/ML VIAL IV PRN (22:11)
[2020-02-17 00:30] VITALS: BP 132/83
[2020-02-17 03:54] VITALS: BP 129/69
[2020-02-17 04:31] LABS: HEMATOCRIT 34.7 % (42-54); MEAN CORPUSCULAR HEMOGLOBIN 26.5 pg (27.0-33.0); MEAN CORPUSCULAR HGB CONC 31.1 g/dL (32.0-36.0); MEAN CORPUSCULAR VOLUME 85.3 fL (79-99); RED BLOOD CELL COUNT(AUTO) 4.07 MIL/uL (4.50-6.20); RED CELL DISTRIBUTION WIDTH 17.2 % (11.0-15.5); WHITE BLOOD COUNT (AUTO) 14.1 K/uL (4.8-10.8)
[2020-02-17 04:51] LABS: CREATININE 0.9 mg/dL (0.5-1.5); POTASSIUM 4.7 mmol/L (3.5-5.1)
[2020-02-17] MEDS: ZOSYN 3.375GM+NS 50ML 50 ML IV SCH ×3 (05:00→21:02)
[2020-02-17] MEDS: IPRATROPIUM/ALBUTEROL SULFATE 3 ML SOLUTION IH SCH ×5 (06:21→23:58)
[2020-02-17 08:09] VITALS: BP 121/81
[2020-02-17] MEDS ORDERED: VANCOMYCIN 1.5 GM in SODIUM CHLORIDE 0.9% 250 ML IV SCH (09:45)
[2020-02-17] MEDS: FAMOTIDINE 20MG TAB 20 MG TAB PO SCH ×2 (10:05→21:03)
[2020-02-17] MEDS: ASPIRIN 81 MG EC TAB PO SCH (10:05)
[2020-02-17] MEDS: METHYLPREDNISOLONE SOD SUCC 40MG/ML 1ML IVP SCH ×2 (10:05→21:03)
[2020-02-17] MEDS: METOCLOPRAMIDE 5 MG TABLET PO SCH ×4 (10:05→21:03)
[2020-02-17] MEDS: ENOXAPARIN SODIUM 40 MG/0.4 ML SYRINGE SQ SCH (10:05)
[2020-02-17 12:05] VITALS: BP 122/80
[2020-02-17 16:17] VITALS: BP 126/80
[2020-02-17 20:00] VITALS: BP 137/62
[2020-02-17] MEDS: VANCOMYCIN 1.25 GM in SODIUM CHLORIDE 0.9% 250 ML IV SCH (21:02)
[2020-02-17] MEDS: DiphenhydrAMINE HCL 50 MG/ML VIAL IV PRN (21:17)
[2020-02-18] VITALS (7 sets, daily range): BP systolic 97–148; BP diastolic 66–99
[2020-02-18] MEDS: ZOSYN 3.375GM+NS 50ML 50 ML IV SCH ×3 (05:07→21:24)
[2020-02-18] MEDS: METOCLOPRAMIDE 5 MG TABLET PO SCH ×3 (05:07→21:25)
[2020-02-18] MEDS: IPRATROPIUM/ALBUTEROL SULFATE 3 ML SOLUTION IH SCH ×3 (06:14→18:25)
[2020-02-18] MEDS: METHYLPREDNISOLONE SOD SUCC 40MG/ML 1ML IVP SCH ×2 (09:50→21:25)
[2020-02-18] MEDS: ASPIRIN 81 MG EC TAB PO SCH (09:50)
[2020-02-18] MEDS: FAMOTIDINE 20MG TAB 20 MG TAB PO SCH ×2 (09:50→21:25)
[2020-02-18] MEDS: VANCOMYCIN 1.25 GM in SODIUM CHLORIDE 0.9% 250 ML IV SCH ×2 (09:51→21:25)
[2020-02-18] MEDS: ENOXAPARIN SODIUM 40 MG/0.4 ML SYRINGE SQ SCH (09:51)
[2020-02-18] MEDS: DiphenhydrAMINE HCL 50 MG/ML VIAL IV PRN (21:26)
[2020-02-19] MEDS: IPRATROPIUM/ALBUTEROL SULFATE 3 ML SOLUTION IH SCH ×5 (00:16→23:30)
[2020-02-19 04:00] VITALS: BP 116/68
[2020-02-19] MEDS: ZOSYN 3.375GM+NS 50ML 50 ML IV SCH ×3 (05:20→21:41)
[2020-02-19] MEDS: METOCLOPRAMIDE 5 MG TABLET PO SCH ×3 (05:21→21:40)
[2020-02-19 05:24] LABS: HEMATOCRIT 34.3 % (42-54); MEAN CORPUSCULAR HEMOGLOBIN 26.6 pg (27.0-33.0); MEAN CORPUSCULAR HGB CONC 31.2 g/dL (32.0-36.0); MEAN CORPUSCULAR VOLUME 85.1 fL (79-99); RED BLOOD CELL COUNT(AUTO) 4.03 MIL/uL (4.50-6.20); RED CELL DISTRIBUTION WIDTH 17.8 % (11.0-15.5); WHITE BLOOD COUNT (AUTO) 14.7 K/uL (4.8-10.8)
[2020-02-19 05:44] LABS: CREATININE 0.9 mg/dL (0.5-1.5); POTASSIUM 4.7 mmol/L (3.5-5.1)
[2020-02-19 07:13] VITALS: BP 128/75
[2020-02-19] MEDS: METHYLPREDNISOLONE SOD SUCC 40MG/ML 1ML IVP SCH ×2 (10:17→21:40)
[2020-02-19] MEDS: ASPIRIN 81 MG EC TAB PO SCH (10:17)
[2020-02-19] MEDS: FAMOTIDINE 20MG TAB 20 MG TAB PO SCH ×2 (10:18→21:40)
[2020-02-19] MEDS: VANCOMYCIN 1.25 GM in SODIUM CHLORIDE 0.9% 250 ML IV SCH ×2 (10:18→21:41)
[2020-02-19 10:37] VITALS: BP 127/86
[2020-02-19] MEDS: ENOXAPARIN SODIUM 40 MG/0.4 ML SYRINGE SQ SCH (11:04)
[2020-02-19 15:31] VITALS: BP 105/68
[2020-02-19 19:20] VITALS: BP 117/76
[2020-02-19] MEDS: DiphenhydrAMINE HCL 50 MG/ML VIAL IV PRN (21:52)
[2020-02-20] VITALS (7 sets, daily range): BP systolic 122–149; BP diastolic 73–99
[2020-02-20] MEDS: ZOSYN 3.375GM+NS 50ML 50 ML IV SCH ×3 (05:08→21:55)
[2020-02-20 06:09] LABS: BASOPHILS % (AUTO) 0.7 % (0.0-5.0); EOSINOPHILS % (AUTO) 0.1 % (0.0-8.0); HEMATOCRIT 35.7 % (42-54); LYMPHOCYTES % (AUTO) 6.3 % (21.0-51.0); MEAN CORPUSCULAR HEMOGLOBIN 26.5 pg (27.0-33.0); MEAN CORPUSCULAR HGB CONC 31.1 g/dL (32.0-36.0); MEAN CORPUSCULAR VOLUME 85.2 fL (79-99); MONOCYTES % (AUTO) 7.2 % (3.0-13.0); NEUTROPHILS % (AUTO) 81.5 % (40.0-77.0); PLATELET COUNT (AUTO) 296 K/uL (130-400); RED BLOOD CELL COUNT(AUTO) 4.19 MIL/uL (4.50-6.20); RED CELL DISTRIBUTION WIDTH 18.6 % (11.0-15.5)
[2020-02-20 06:25] LABS: ALBUMIN 2.4 g/dL (3.5-5.0); BILIRUBIN,TOTAL 0.3 mg/dL (0.2-1.0); POTASSIUM 5.1 mmol/L (3.5-5.1); TOTAL PROTEIN, SERUM 6.5 g/dL (6.0-8.3)
[2020-02-20] MEDS: IPRATROPIUM/ALBUTEROL SULFATE 3 ML SOLUTION IH SCH ×3 (06:31→18:25)
[2020-02-20] MEDS: METOCLOPRAMIDE 5 MG TABLET PO SCH ×4 (09:00→21:55)
[2020-02-20] MEDS: ASPIRIN 81 MG EC TAB PO SCH (09:01)
[2020-02-20] MEDS: METHYLPREDNISOLONE SOD SUCC 40MG/ML 1ML IVP SCH ×2 (09:01→21:55)
[2020-02-20] MEDS: FAMOTIDINE 20MG TAB 20 MG TAB PO SCH ×2 (09:01→21:55)
[2020-02-20] MEDS: ENOXAPARIN SODIUM 40 MG/0.4 ML SYRINGE SQ SCH (09:02)
[2020-02-20] MEDS: VANCOMYCIN 1.25 GM in SODIUM CHLORIDE 0.9% 250 ML IV SCH ×2 (09:10→21:56)
[2020-02-20] MEDS: DiphenhydrAMINE HCL 50 MG/ML VIAL IV PRN (22:02)
[2020-02-21] MEDS: IPRATROPIUM/ALBUTEROL SULFATE 3 ML SOLUTION IH SCH ×3 (00:13→11:00)
[2020-02-21 03:32] VITALS: BP 132/88
[2020-02-21] MEDS: ZOSYN 3.375GM+NS 50ML 50 ML IV SCH ×2 (04:54→12:02)
[2020-02-21 05:19] LABS: HEMATOCRIT 35.4 % (42-54); MEAN CORPUSCULAR HEMOGLOBIN 26.7 pg (27.0-33.0); MEAN CORPUSCULAR HGB CONC 31.4 g/dL (32.0-36.0); MEAN CORPUSCULAR VOLUME 85.1 fL (79-99); RED BLOOD CELL COUNT(AUTO) 4.16 MIL/uL (4.50-6.20); WHITE BLOOD COUNT (AUTO) 17.3 K/uL (4.8-10.8)
[2020-02-21 05:37] LABS: POTASSIUM 5.2 mmol/L (3.5-5.1)
[2020-02-21] MEDS: METOCLOPRAMIDE 5 MG TABLET PO SCH ×2 (06:03→12:02)
[2020-02-21 08:00] VITALS: BP 137/86
[2020-02-21] MEDS: VANCOMYCIN 1.25 GM in SODIUM CHLORIDE 0.9% 250 ML IV SCH (09:47)
[2020-02-21] MEDS: METHYLPREDNISOLONE SOD SUCC 40MG/ML 1ML IVP SCH (09:48)
[2020-02-21] MEDS: FAMOTIDINE 20MG TAB 20 MG TAB PO SCH (09:49)
[2020-02-21] MEDS: ASPIRIN 81 MG EC TAB PO SCH (09:49)
[2020-02-21] MEDS: ENOXAPARIN SODIUM 40 MG/0.4 ML SYRINGE SQ SCH (09:50)
[2020-02-21] MEDS: GUAIFENESIN-CODEINE 5 ML SYRUP PO PRN (09:55)
[2020-02-21 11:58] VITALS: BP 121/83
[2020-02-21 16:00] VITALS: BP 128/85
[2020-02-21 20:08] VITALS: BP 128/80
[2020-02-21] MEDS ORDERED: METHYLPREDNISOLONE SOD SUCC 40MG/ML 1ML IVP SCH (21:00)
== END 2020-02-21 21:47 | DRG 871 ==
LOC: EDH 22:10 → INTOOBSV 02-13 00:46 → OBSVTOIN 02-13 00:46 → EDHIP 02-13 00:46 → 4BH 02-13 02:12
PROVIDERS: ADMIT Internal Medicine Critical Care Medicine; ATTEND Internal Medicine Critical Care Medicine
DX: A41.9 Sepsis, unspecified organism (principal); J96.91 Respiratory failure, unspecified with hypoxia; J18.1 Lobar pneumonia, unspecified organism; G81.94 Hemiplegia, unspecified affecting left nondominant side; R64 Cachexia; Z68.1 Body mass index [BMI] 19.9 or less, adult; J90 Pleural effusion, not elsewhere classified; C34.90 Malignant neoplasm of unspecified part of unspecified bronchus or lung; J44.0 Chronic obstructive pulmonary disease with (acute) lower respiratory infection; J44.1 Chronic obstructive pulmonary disease with (acute) exacerbation; I25.10 Atherosclerotic heart disease of native coronary artery without angina pectoris; I10 Essential (primary) hypertension; Z96.0 Presence of urogenital implants; R63.0 Anorexia; R53.81 Other malaise; D64.9 Anemia, unspecified; R62.7 Adult failure to thrive; J43.9 Emphysema, unspecified; E78.5 Hyperlipidemia, unspecified; Z20.828 Contact with and (suspected) exposure to other viral communicable diseases; Z79.82 Long term (current) use of aspirin; Z99.81 Dependence on supplemental oxygen; Z92.3 Personal history of irradiation; Z92.21 Personal history of antineoplastic chemotherapy; Z87.891 Personal history of nicotine dependence; Z87.442 Personal history of urinary calculi; Z95.5 Presence of coronary angioplasty implant and graft; Z59.0 Homelessness; Z90.49 Acquired absence of other specified parts of digestive tract; Z91.14 Patient's other noncompliance with medication regimen
CPT/HCPCS: 36415; 71045; 71250; 80048; 80053; 80202; 81001; 82550; 83605; 83735; 83880; 84100; 84145; 84484; 85025; 85027; 85378; 85610; 85730; 87040; 87426; 87804; 93005; 94640; 94664; 94667; 94668; G0378; J1200; J1650; J1940; J1953; J2405; J2543; J2920; J3370; J7050; U0003

== ENCOUNTER 2020-05-01 00:12 | Inpatient (IN) | payer OTHER ==
[2020-05-01 01:16] LABS: BASOPHILS % (AUTO) 0.6 % (0.0-5.0); EOSINOPHILS % (AUTO) 0.8 % (0.0-8.0); HEMATOCRIT 40.8 % (42-54); LYMPHOCYTES % (AUTO) 9.7 % (21.0-51.0); MEAN CORPUSCULAR HEMOGLOBIN 26.4 pg (27.0-33.0); MEAN CORPUSCULAR HGB CONC 31.1 g/dL (32.0-36.0); MEAN CORPUSCULAR VOLUME 84.8 fL (79-99); MONOCYTES % (AUTO) 10.6 % (3.0-13.0); NEUTROPHILS % (AUTO) 77.8 % (40.0-77.0); PLATELET COUNT (AUTO) 445 K/uL (130-400); RED BLOOD CELL COUNT(AUTO) 4.81 MIL/uL (4.50-6.20); RED CELL DISTRIBUTION WIDTH 16.5 % (11.0-15.5); WHITE BLOOD COUNT (AUTO) 16.3 K/uL (4.8-10.8)
[2020-05-01 01:23] LABS: CREATININE 1.4 mg/dL (0.5-1.5); POTASSIUM 4.2 mmol/L (3.5-5.1)
[2020-05-01 01:26] LABS: INR 1.03 (0.85-1.15); PROTHROMBIN TIME 11.2 SEC (9.6-11.6)
[2020-05-01 01:27] LABS: ALBUMIN 2.4 g/dL (3.5-5.0); BILIRUBIN,TOTAL 0.5 mg/dL (0.2-1.0); PARTIAL THROMBOPLASTIN TIME 24.5 SEC (26.3-35.5); TOTAL PROTEIN, SERUM 8.2 g/dL (6.0-8.3)
[2020-05-01 01:37] LABS: ABG BASE EXCESS 0.9 mmol/L (-2.0-3.0); ABG HCO3 23.6 mmol/L (21.0-28.0); ABG OXYGEN SATURATION 97.4 % (95.0-99.0); ABG PCO2 32 mmHg (35-48)
[2020-05-01] MEDS ORDERED: IPRATROPIUM/ALBUTEROL SULFATE 3 ML SOLUTION IH ONE (01:43)
[2020-05-01] MEDS ORDERED: AZITHROMYCIN 500MG+NS 250ML 250 ML IV ONE ×2 (01:46→20:54)
[2020-05-01] MEDS ORDERED: CEFTRIAXONE 1G VIAL ONE (01:47)
[2020-05-01 02:07] LABS: B-TYPE NATRIURETIC PEPTIDE 272 pg/mL (0-100)
[2020-05-01 04:58] VITALS: BP 90/61
[2020-05-01 08:00] VITALS: BP 96/69
[2020-05-01] MEDS: ENOXAPARIN SODIUM 40 MG/0.4 ML SYRINGE SQ SCH (09:04)
[2020-05-01 12:00] VITALS: BP 80/52
[2020-05-01] MEDS ORDERED: DEXTROSE 50%-WATER 50 ML DISP.SYRIN IV PRN (14:30)
[2020-05-01] MEDS ORDERED: KCL 20 MEQ ERTAB PO PRN (14:30)
[2020-05-01] MEDS ORDERED: GLUCAGON 1MG KIT 1 MG ML IM PRN (14:30)
[2020-05-01] MEDS ORDERED: MAGNESIUM 2GM PREMIX 50ML 50 ML IV PRN (14:30)
[2020-05-01] MEDS ORDERED: LIDOCAINE HCL-MPF 1% 2ML VIAL IV PRN (14:30)
[2020-05-01] MEDS ORDERED: FAMOTIDINE 20MG TAB PO SCH (15:45)
[2020-05-01] MEDS: ACETAMINOPHEN 325 MG TAB PO PRN ×2 (16:01→17:18)
[2020-05-01] MEDS: GUAIFENESIN-DM 200/20 MG 10 ML PO PRN ×2 (16:01→20:58)
[2020-05-01] MEDS: 0.9%NACL 1000ML 1,000 ML IV SCH (16:02)
[2020-05-01] MEDS: FLUTICASONE/VILANTEROL 1 EACH AER.POW.BA IH SCH (16:09)
[2020-05-01] MEDS: DEXAMETHASONE SOD PHOSPHATE 4 MG/ML 1ML VIAL IV SCH (16:12)
[2020-05-01 16:39] VITALS: BP 92/64
[2020-05-01] MEDS: IPRATROPIUM/ALBUTEROL SULFATE 3 ML SOLUTION IH SCH (18:00)
[2020-05-01 20:27] VITALS: BP 95/67
[2020-05-01] MEDS ORDERED: TRAZODONE HCL 50 MG TAB PO SCH (21:00)
[2020-05-01] MEDS: AZITHROMYCIN 500MG+NS 250ML 250 ML IV SCH (23:11)
[2020-05-02] MEDS: IPRATROPIUM/ALBUTEROL SULFATE 3 ML SOLUTION IH SCH
[2020-05-02 00:03] VITALS: BP 90/57
[2020-05-02] MEDS: CEFTRIAXONE 1G VIAL IVP SCH (01:09)
[2020-05-02 04:26] VITALS: BP 108/68
[2020-05-02 05:58] LABS: HEMATOCRIT 33.7 % (42-54); MEAN CORPUSCULAR HEMOGLOBIN 26.1 pg (27.0-33.0); MEAN CORPUSCULAR HGB CONC 31.2 g/dL (32.0-36.0); MEAN CORPUSCULAR VOLUME 83.8 fL (79-99); RED BLOOD CELL COUNT(AUTO) 4.02 MIL/uL (4.50-6.20); RED CELL DISTRIBUTION WIDTH 16.2 % (11.0-15.5)
[2020-05-02 06:04] LABS: CREATININE 1.5 mg/dL (0.5-1.5); MAGNESIUM 1.9 mg/dL (1.80-2.40); POTASSIUM 4.3 mmol/L (3.5-5.1)
[2020-05-02 08:06] VITALS: BP 100/57
[2020-05-02] MEDS: GUAIFENESIN-DM 200/20 MG 10 ML PO PRN (09:43)
[2020-05-02] MEDS: DEXAMETHASONE SOD PHOSPHATE 4 MG/ML 1ML VIAL IV SCH (09:44)
[2020-05-02] MEDS: ENOXAPARIN SODIUM 40 MG/0.4 ML SYRINGE SQ SCH (09:44)
[2020-05-02] MEDS: FLUTICASONE/VILANTEROL 1 EACH AER.POW.BA IH SCH (09:45)
[2020-05-02] MEDS: 0.9%NACL 1000ML 1,000 ML IV SCH (11:00)
[2020-05-02 12:58] VITALS: BP 93/69
[2020-05-02] MEDS: ALBUTEROL INHALER 90MCG/INH IH SCH (14:24)
[2020-05-02 16:31] VITALS: BP 116/68
[2020-05-02] MEDS: TRAZODONE HCL 50 MG TAB PO SCH (19:45)
[2020-05-02 20:14] VITALS: BP 96/69
[2020-05-03] VITALS (7 sets, daily range): BP systolic 95–139; BP diastolic 66–86
[2020-05-03] MEDS: ALBUTEROL INHALER 90MCG/INH IH SCH ×4 (00:30→17:16)
[2020-05-03] MEDS: CEFTRIAXONE 1G VIAL IVP SCH (00:30)
[2020-05-03] MEDS: AZITHROMYCIN 500MG+NS 250ML 250 ML IV SCH ×2 (00:30→22:48)
[2020-05-03] MEDS: 0.9%NACL 1000ML 1,000 ML IV SCH ×3 (05:25→08:34)
[2020-05-03 06:30] LABS: HEMATOCRIT 29.2 % (42-54); MEAN CORPUSCULAR HEMOGLOBIN 26.2 pg (27.0-33.0); MEAN CORPUSCULAR HGB CONC 31.5 g/dL (32.0-36.0); MEAN CORPUSCULAR VOLUME 83.2 fL (79-99); RED BLOOD CELL COUNT(AUTO) 3.51 MIL/uL (4.50-6.20); RED CELL DISTRIBUTION WIDTH 16.4 % (11.0-15.5); WHITE BLOOD COUNT (AUTO) 14.4 K/uL (4.8-10.8)
[2020-05-03 06:44] LABS: CREATININE 0.9 mg/dL (0.5-1.5); POTASSIUM 3.7 mmol/L (3.5-5.1)
[2020-05-03] MEDS: DEXAMETHASONE SOD PHOSPHATE 4 MG/ML 1ML VIAL IV SCH (08:27)
[2020-05-03] MEDS: ENOXAPARIN SODIUM 40 MG/0.4 ML SYRINGE SQ SCH (08:29)
[2020-05-03] MEDS: FLUTICASONE/VILANTEROL 1 EACH AER.POW.BA IH SCH (08:29)
[2020-05-03] MEDS: GUAIFENESIN-DM 200/20 MG 10 ML PO PRN ×3 (11:17→20:12)
[2020-05-03] MEDS: ONDANSETRON 4MG INJ IVP PRN (11:17)
[2020-05-03] MEDS: TRAZODONE HCL 50 MG TAB PO SCH (20:12)
[2020-05-04] MEDS: CEFTRIAXONE 1G VIAL IVP SCH (01:37)
[2020-05-04] MEDS: ALBUTEROL INHALER 90MCG/INH IH SCH ×4 (01:37→18:21)
[2020-05-04 04:18] LABS: CREATININE 0.9 mg/dL (0.5-1.5); MAGNESIUM 1.6 mg/dL (1.80-2.40); POTASSIUM 3.9 mmol/L (3.5-5.1)
[2020-05-04 04:22] VITALS: BP 124/78
[2020-05-04] MEDS: ENOXAPARIN SODIUM 40 MG/0.4 ML SYRINGE SQ SCH (08:00)
[2020-05-04] MEDS: DEXAMETHASONE SOD PHOSPHATE 4 MG/ML 1ML VIAL IV SCH (08:01)
[2020-05-04] MEDS: GUAIFENESIN-DM 200/20 MG 10 ML PO PRN ×3 (08:01→20:15)
[2020-05-04] MEDS: FLUTICASONE/VILANTEROL 1 EACH AER.POW.BA IH SCH (08:01)
[2020-05-04 08:33] VITALS: BP 94/58
[2020-05-04 13:13] VITALS: BP 111/64
[2020-05-04] MEDS: ONDANSETRON 4MG INJ IVP PRN (15:47)
[2020-05-04 15:51] VITALS: BP 132/85
[2020-05-04 19:00] VITALS: BP 107/63
[2020-05-04] MEDS: TRAZODONE HCL 50 MG TAB PO SCH (20:15)
[2020-05-04] MEDS: 0.9%NACL 1000ML 1,000 ML IV SCH (23:00)
[2020-05-04] MEDS: AZITHROMYCIN 500MG+NS 250ML 250 ML IV SCH (23:00)
[2020-05-05] VITALS: BP 152/88
[2020-05-05] MEDS: ALBUTEROL INHALER 90MCG/INH IH SCH ×5 (01:02→22:17)
[2020-05-05] MEDS: CEFTRIAXONE 1G VIAL IVP SCH ×2 (01:02→22:36)
[2020-05-05 04:00] VITALS: BP 142/84
[2020-05-05] MEDS: ONDANSETRON 4MG INJ IVP PRN ×2 (07:17→22:13)
[2020-05-05] MEDS: GUAIFENESIN-DM 200/20 MG 10 ML PO PRN ×2 (07:17→13:39)
[2020-05-05] MEDS: ENOXAPARIN SODIUM 40 MG/0.4 ML SYRINGE SQ SCH (07:58)
[2020-05-05] MEDS: FLUTICASONE/VILANTEROL 1 EACH AER.POW.BA IH SCH (08:11)
[2020-05-05] MEDS: DEXAMETHASONE SOD PHOSPHATE 4 MG/ML 1ML VIAL IV SCH (08:14)
[2020-05-05 09:07] VITALS: BP 99/65
[2020-05-05 13:03] VITALS: BP 93/56
[2020-05-05] MEDS: METOCLOPRAMIDE 5 MG TABLET PO PRN (13:39)
[2020-05-05 16:23] VITALS: BP 122/74
[2020-05-05 16:50] LABS: HEMATOCRIT 35.7 % (42-54); MEAN CORPUSCULAR HEMOGLOBIN 26.4 pg (27.0-33.0); MEAN CORPUSCULAR HGB CONC 31.4 g/dL (32.0-36.0); MEAN CORPUSCULAR VOLUME 84.2 fL (79-99); RED BLOOD CELL COUNT(AUTO) 4.24 MIL/uL (4.50-6.20); RED CELL DISTRIBUTION WIDTH 16.7 % (11.0-15.5); WHITE BLOOD COUNT (AUTO) 13.9 K/uL (4.8-10.8)
[2020-05-05 17:03] LABS: MAGNESIUM 1.9 mg/dL (1.80-2.40); POTASSIUM 4.3 mmol/L (3.5-5.1)
[2020-05-05 20:10] VITALS: BP 106/64
[2020-05-05] MEDS: TRAZODONE HCL 50 MG TAB PO SCH (20:26)
[2020-05-05] MEDS: AZITHROMYCIN 500MG+NS 250ML 250 ML IV SCH (22:13)
[2020-05-06 00:05] VITALS: BP 102/59
[2020-05-06 04:03] VITALS: BP 124/62
[2020-05-06 04:59] LABS: ALBUMIN 2.2 g/dL (3.5-5.0); BILIRUBIN,TOTAL 0.1 mg/dL (0.2-1.0); CREATININE 0.9 mg/dL (0.5-1.5); POTASSIUM 3.6 mmol/L (3.5-5.1); TOTAL PROTEIN, SERUM 6.7 g/dL (6.0-8.3)
[2020-05-06] MEDS: ALBUTEROL INHALER 90MCG/INH IH SCH ×2 (06:00→23:08)
[2020-05-06 08:19] VITALS: BP 90/58
[2020-05-06] MEDS: ENOXAPARIN SODIUM 40 MG/0.4 ML SYRINGE SQ SCH (09:00)
[2020-05-06] MEDS: DEXAMETHASONE SOD PHOSPHATE 4 MG/ML 1ML VIAL IV SCH (09:00)
[2020-05-06] MEDS: FLUTICASONE/VILANTEROL 1 EACH AER.POW.BA IH SCH (10:37)
[2020-05-06 11:32] VITALS: BP 113/84
[2020-05-06] MEDS ORDERED: FAMOTIDINE 20MG VIAL IV ONE (11:35)
[2020-05-06 16:00] VITALS: BP 93/64
[2020-05-06 20:04] VITALS: BP 92/58
[2020-05-06] MEDS: TRAZODONE HCL 50 MG TAB PO SCH (20:43)
[2020-05-06] MEDS: CEFTRIAXONE 1G VIAL IVP SCH (23:05)
[2020-05-06] MEDS: AZITHROMYCIN 500MG+NS 250ML 250 ML IV SCH (23:05)
[2020-05-07] VITALS (7 sets, daily range): BP systolic 90–116; BP diastolic 50–68
[2020-05-07] MEDS: ONDANSETRON 4MG INJ IVP PRN (03:36)
[2020-05-07] MEDS: ALBUTEROL INHALER 90MCG/INH IH SCH (06:00)
[2020-05-07] MEDS: ENOXAPARIN SODIUM 40 MG/0.4 ML SYRINGE SQ SCH (08:41)
[2020-05-07] MEDS: DEXAMETHASONE SOD PHOSPHATE 4 MG/ML 1ML VIAL IV SCH (08:41)
[2020-05-07] MEDS: FLUTICASONE/VILANTEROL 1 EACH AER.POW.BA IH SCH (08:42)
[2020-05-07] MEDS ORDERED: METH4TAB3 PO (11:18)
[2020-05-07] MEDS ORDERED: 0.9% NACL 250ML 250 ML IV ONE (12:14)
[2020-05-07] MEDS: POTASSIUM CHLORIDE 20MEQ/100ML 100 ML IV PRN (14:54)
[2020-05-07] MEDS: TRAZODONE HCL 50 MG TAB PO SCH (20:50)
[2020-05-07] MEDS: CEFTRIAXONE 1G VIAL IVP SCH (23:14)
[2020-05-07] MEDS: METOCLOPRAMIDE 5 MG TABLET PO PRN (23:14)
[2020-05-07] MEDS: AZITHROMYCIN 500MG+NS 250ML 250 ML IV SCH (23:15)
[2020-05-08 04:02] VITALS: BP 92/50
[2020-05-08] MEDS: ALBUTEROL INHALER 90MCG/INH IH SCH ×4 (06:00→17:44)
[2020-05-08 08:02] VITALS: BP 89/58
[2020-05-08 09:40] LABS: ABG BASE EXCESS 4.1 mmol/L (-2.0-3.0); ABG HCO3 28.7 mmol/L (21.0-28.0); ABG OXYGEN SATURATION 98.1 % (95.0-99.0); ABG PCO2 43 mmHg (35-48)
[2020-05-08] MEDS: PREDNISONE 20 MG TABLET PO SCH (10:07)
[2020-05-08] MEDS: FLUTICASONE/VILANTEROL 1 EACH AER.POW.BA IH SCH (10:08)
[2020-05-08] MEDS ORDERED: CHLORPROMAZINE HCL 25 MG/ML 1ML AMP IM SCH (11:00)
[2020-05-08 12:17] VITALS: BP 93/60
[2020-05-08 16:10] VITALS: BP 92/63
[2020-05-08] MEDS: TRAZODONE HCL 50 MG TAB PO SCH (20:13)
[2020-05-08 20:28] VITALS: BP 85/59
[2020-05-09 00:28] VITALS: BP 95/64
[2020-05-09] MEDS: CEFTRIAXONE 1G VIAL IVP SCH (00:46)
[2020-05-09] MEDS: AZITHROMYCIN 500MG+NS 250ML 250 ML IV SCH (00:47)
[2020-05-09] MEDS: ALBUTEROL INHALER 90MCG/INH IH SCH ×2 (00:49→06:31)
[2020-05-09 04:28] VITALS: BP 91/59
[2020-05-09 05:13] LABS: HEMATOCRIT 30.9 % (42-54); MEAN CORPUSCULAR HEMOGLOBIN 26.3 pg (27.0-33.0); MEAN CORPUSCULAR HGB CONC 31.7 g/dL (32.0-36.0); MEAN CORPUSCULAR VOLUME 83.1 fL (79-99); RED BLOOD CELL COUNT(AUTO) 3.72 MIL/uL (4.50-6.20); RED CELL DISTRIBUTION WIDTH 16.9 % (11.0-15.5); WHITE BLOOD COUNT (AUTO) 20.5 K/uL (4.8-10.8)
[2020-05-09 05:29] LABS: CREATININE 0.9 mg/dL (0.5-1.5)
[2020-05-09] MEDS: POTASSIUM CHLORIDE 20MEQ/100ML 100 ML IV PRN (06:30)
[2020-05-09] MEDS: PREDNISONE 20 MG TABLET PO SCH (08:03)
[2020-05-09] MEDS: POTASSIUM CHLORIDE 10% ELIXIR 20 MEQ/15 ML UDCUP PO PRN ×2 (08:03→11:53)
[2020-05-09 08:08] VITALS: BP 72/52
[2020-05-09] MEDS: FLUTICASONE/VILANTEROL 1 EACH AER.POW.BA IH SCH (09:40)
[2020-05-09 12:00] VITALS: BP 93/55
[2020-05-09 16:47] VITALS: BP 98/61
[2020-05-09 20:11] VITALS: BP 90/53
[2020-05-10] VITALS (7 sets, daily range): BP systolic 62–102; BP diastolic 30–62
[2020-05-10] MEDS: TRAZODONE HCL 50 MG TAB PO SCH ×2 (01:11→21:11)
[2020-05-10] MEDS: AZITHROMYCIN 500MG+NS 250ML 250 ML IV SCH ×2 (01:12→21:11)
[2020-05-10] MEDS: CEFTRIAXONE 1G VIAL IVP SCH (01:13)
[2020-05-10 04:13] LABS: POTASSIUM 3.2 mmol/L (3.5-5.1)
[2020-05-10] MEDS: PREDNISONE 20 MG TABLET PO SCH (07:47)
[2020-05-10] MEDS: FLUTICASONE/VILANTEROL 1 EACH AER.POW.BA IH SCH (07:51)
[2020-05-10] MEDS: POTASSIUM CHLORIDE 10% ELIXIR 20 MEQ/15 ML UDCUP PO PRN (10:13)
[2020-05-10] MEDS ORDERED: CHLO25 PO (21:14)
[2020-05-11] VITALS (7 sets, daily range): BP systolic 67–120; BP diastolic 39–79
[2020-05-11] MEDS: CEFTRIAXONE 1G VIAL IVP SCH (00:14)
[2020-05-11] MEDS: ALBUTEROL INHALER 90MCG/INH IH SCH ×4 (00:15→17:32)
[2020-05-11 05:39] LABS: CREATININE 0.8 mg/dL (0.5-1.5); POTASSIUM 3.2 mmol/L (3.5-5.1)
[2020-05-11] MEDS: FLUTICASONE/VILANTEROL 1 EACH AER.POW.BA IH SCH (09:00)
[2020-05-11] MEDS: PREDNISONE 20 MG TABLET PO SCH (10:24)
[2020-05-11] MEDS: TRAZODONE HCL 50 MG TAB PO SCH (22:11)
[2020-05-12] VITALS: BP 96/63
[2020-05-12] MEDS: ALBUTEROL INHALER 90MCG/INH IH SCH ×4 (00:06→17:56)
[2020-05-12 04:00] VITALS: BP 96/60
[2020-05-12 08:00] VITALS: BP 87/59
[2020-05-12] MEDS: PREDNISONE 20 MG TABLET PO SCH (09:22)
[2020-05-12] MEDS: DIPHENOXYLATE HCL/ATROPINE 2.5/0.025 MG TAB PO PRN (09:22)
[2020-05-12] MEDS: POTASSIUM CHLORIDE 10% ELIXIR 20 MEQ/15 ML UDCUP PO PRN (09:23)
[2020-05-12] MEDS: FLUTICASONE/VILANTEROL 1 EACH AER.POW.BA IH SCH (09:30)
[2020-05-12 12:21] VITALS: BP 91/66
[2020-05-12 16:00] VITALS: BP 95/63
[2020-05-12 19:56] VITALS: BP 89/51
[2020-05-12] MEDS: TRAZODONE HCL 50 MG TAB PO SCH (20:58)
[2020-05-13 00:08] VITALS: BP 94/62
[2020-05-13] MEDS: ALBUTEROL INHALER 90MCG/INH IH SCH ×4 (01:44→23:31)
[2020-05-13 04:00] VITALS: BP 89/59
[2020-05-13] MEDS: DIPHENOXYLATE HCL/ATROPINE 2.5/0.025 MG TAB PO PRN ×2 (04:57→20:53)
[2020-05-13 07:59] VITALS: BP 90/60
[2020-05-13] MEDS: PREDNISONE 20 MG TABLET PO SCH (09:42)
[2020-05-13] MEDS: FLUTICASONE/VILANTEROL 1 EACH AER.POW.BA IH SCH (09:42)
[2020-05-13 11:34] VITALS: BP 108/72
[2020-05-13] MEDS: GUAIFENESIN-DM 200/20 MG 10 ML PO PRN (11:42)
[2020-05-13 16:00] VITALS: BP 76/49
[2020-05-13 19:00] VITALS: BP 108/58
[2020-05-13] MEDS: TRAZODONE HCL 50 MG TAB PO SCH (20:53)
[2020-05-14] VITALS (7 sets, daily range): BP systolic 74–108; BP diastolic 48–72
[2020-05-14] MEDS: ALBUTEROL INHALER 90MCG/INH IH SCH ×3 (06:25→20:40)
[2020-05-14] MEDS: FLUTICASONE/VILANTEROL 1 EACH AER.POW.BA IH SCH (09:00)
[2020-05-14] MEDS: GUAIFENESIN-DM 200/20 MG 10 ML PO PRN (10:18)
[2020-05-14] MEDS: PREDNISONE 20 MG TABLET PO SCH (10:18)
[2020-05-14] MEDS: TRAZODONE HCL 50 MG TAB PO SCH (20:37)
[2020-05-15] VITALS (8 sets, daily range): BP systolic 67–154; BP diastolic 42–69
[2020-05-15] MEDS: KETOROLAC 30MG VIAL (30MG/ML) IM PRN (00:22)
[2020-05-15] MEDS: ALBUTEROL INHALER 90MCG/INH IH SCH ×4 (06:29→20:18)
[2020-05-15] MEDS: PREDNISONE 20 MG TABLET PO SCH (08:47)
[2020-05-15] MEDS: FLUTICASONE/VILANTEROL 1 EACH AER.POW.BA IH SCH (08:49)
[2020-05-15] MEDS: ONDANSETRON 4MG INJ IVP PRN (12:45)
[2020-05-15] MEDS: GUAIFENESIN-DM 200/20 MG 10 ML PO PRN (20:17)
[2020-05-15] MEDS: TRAZODONE HCL 50 MG TAB PO SCH (20:18)
[2020-05-16 04:00] VITALS: BP 97/56
[2020-05-16] MEDS: ALBUTEROL INHALER 90MCG/INH IH SCH ×5 (06:06→23:14)
[2020-05-16] MEDS: KETOROLAC 30MG VIAL (30MG/ML) IM PRN ×2 (06:10→16:35)
[2020-05-16 08:18] VITALS: BP 76/41
[2020-05-16] MEDS: FLUTICASONE/VILANTEROL 1 EACH AER.POW.BA IH SCH (08:53)
[2020-05-16] MEDS: PREDNISONE 20 MG TABLET PO SCH (08:53)
[2020-05-16 11:47] VITALS: BP 88/56
[2020-05-16 16:28] LABS: MAGNESIUM 1.9 mg/dL (1.80-2.40); POTASSIUM 4.2 mmol/L (3.5-5.1)
[2020-05-16 16:50] VITALS: BP 80/55
[2020-05-16 20:00] VITALS: BP 68/42
[2020-05-16] MEDS: TRAZODONE HCL 50 MG TAB PO SCH (20:46)
[2020-05-17] VITALS: BP 81/54
[2020-05-17 04:00] VITALS: BP 88/51
[2020-05-17] MEDS: ALBUTEROL INHALER 90MCG/INH IH SCH ×4 (05:15→23:21)
[2020-05-17] MEDS: PREDNISONE 20 MG TABLET PO SCH (07:56)
[2020-05-17] MEDS: FLUTICASONE/VILANTEROL 1 EACH AER.POW.BA IH SCH (07:56)
[2020-05-17 08:41] VITALS: BP 81/53
[2020-05-17] MEDS: DIPHENOXYLATE HCL/ATROPINE 2.5/0.025 MG TAB PO PRN (11:24)
[2020-05-17 11:41] VITALS: BP 89/52
[2020-05-17 16:59] VITALS: BP 97/62
[2020-05-17] MEDS: TRAZODONE HCL 50 MG TAB PO SCH (19:54)
[2020-05-17 20:00] VITALS: BP 90/61
[2020-05-18] VITALS (7 sets, daily range): BP systolic 65–89; BP diastolic 43–55
[2020-05-18] MEDS: ALBUTEROL INHALER 90MCG/INH IH SCH ×3 (04:51→18:00)
[2020-05-18] MEDS: GUAIFENESIN-DM 200/20 MG 10 ML PO PRN (08:07)
[2020-05-18] MEDS: PREDNISONE 20 MG TABLET PO SCH (08:07)
[2020-05-18] MEDS: FLUTICASONE/VILANTEROL 1 EACH AER.POW.BA IH SCH (08:10)
[2020-05-18] MEDS: 0.9%NACL 1000ML 1,000 ML IV SCH (12:04)
[2020-05-18] MEDS: MIDODRINE HCL 5 MG TABLET PO SCH ×2 (14:45→20:17)
[2020-05-18] MEDS: TRAZODONE HCL 50 MG TAB PO SCH (20:17)
[2020-05-18] MEDS: GUAIFENESIN 600 MG TABLET.ER PO SCH (20:17)
[2020-05-19] MEDS: 0.9%NACL 1000ML 1,000 ML IV SCH ×3 (02:42→21:26)
[2020-05-19 04:00] VITALS: BP 93/67
[2020-05-19] MEDS: ALBUTEROL INHALER 90MCG/INH IH SCH ×4 (06:00→18:00)
[2020-05-19 06:25] LABS: ALBUMIN 1.3 g/dL (3.5-5.0); BILIRUBIN,TOTAL 0.5 mg/dL (0.2-1.0); CREATININE 0.9 mg/dL (0.5-1.5); POTASSIUM 3.9 mmol/L (3.5-5.1); TOTAL PROTEIN, SERUM 4.9 g/dL (6.0-8.3)
[2020-05-19 08:00] VITALS: BP 80/57
[2020-05-19] MEDS: PREDNISONE 20 MG TABLET PO SCH (10:32)
[2020-05-19] MEDS: GUAIFENESIN 600 MG TABLET.ER PO SCH ×2 (10:32→19:33)
[2020-05-19] MEDS: MIDODRINE HCL 5 MG TABLET PO SCH ×3 (10:33→19:33)
[2020-05-19 11:33] VITALS: BP 75/45
[2020-05-19] MEDS: FLUTICASONE/VILANTEROL 1 EACH AER.POW.BA IH SCH (13:40)
[2020-05-19] MEDS: GUAIFENESIN-DM 200/20 MG 10 ML PO PRN (13:40)
[2020-05-19] MEDS: IPRATROPIUM/ALBUTEROL SULFATE 3 ML SOLUTION IH SCH ×2 (14:00→18:56)
[2020-05-19] MEDS: DIPHENOXYLATE HCL/ATROPINE 2.5/0.025 MG TAB PO PRN (14:09)
[2020-05-19] MEDS: KETOROLAC 30MG VIAL (30MG/ML) IM PRN (14:10)
[2020-05-19] MEDS: BACLOFEN 10 MG TABLET PO PRN ×2 (14:18→19:34)
[2020-05-19 16:32] VITALS: BP 78/47
[2020-05-19] MEDS: TRAZODONE HCL 50 MG TAB PO SCH (19:33)
[2020-05-19 19:52] VITALS: BP 77/54
[2020-05-19] MEDS ORDERED: ROPINIROLE HCL 1 MG TABLET ONE (23:30)
[2020-05-20] VITALS (7 sets, daily range): BP systolic 90–108; BP diastolic 49–71
[2020-05-20] MEDS: IPRATROPIUM/ALBUTEROL SULFATE 3 ML SOLUTION IH SCH ×3 (00:25→18:42)
[2020-05-20] MEDS ORDERED: KETOROLAC 30MG VIAL (30MG/ML) ONE (08:09)
[2020-05-20] MEDS: KETOROLAC 30MG VIAL (30MG/ML) IV PRN ×2 (08:30→18:48)
[2020-05-20] MEDS: DIPHENOXYLATE HCL/ATROPINE 2.5/0.025 MG TAB PO PRN (08:31)
[2020-05-20] MEDS: PREDNISONE 20 MG TABLET PO SCH (08:31)
[2020-05-20] MEDS: BACLOFEN 10 MG TABLET PO PRN ×2 (08:31→20:59)
[2020-05-20] MEDS: MIDODRINE HCL 5 MG TABLET PO SCH ×3 (08:31→20:59)
[2020-05-20] MEDS: GUAIFENESIN 600 MG TABLET.ER PO SCH ×2 (09:00→20:59)
[2020-05-20] MEDS: FLUTICASONE/VILANTEROL 1 EACH AER.POW.BA IH SCH (09:01)
[2020-05-20] MEDS: 0.9%NACL 1000ML 1,000 ML IV SCH (11:04)
[2020-05-20] MEDS: TRAZODONE HCL 50 MG TAB PO SCH (20:59)
[2020-05-20] MEDS: ROPINIROLE HCL 1 MG TABLET PO SCH (20:59)
[2020-05-21] MEDS: IPRATROPIUM/ALBUTEROL SULFATE 3 ML SOLUTION IH SCH ×4 (00:02→18:00)
[2020-05-21] MEDS: 0.9%NACL 1000ML 1,000 ML IV SCH (00:44)
[2020-05-21] MEDS: KETOROLAC 30MG VIAL (30MG/ML) IV PRN ×2 (00:55→05:40)
[2020-05-21 04:05] VITALS: BP 95/65
[2020-05-21 04:41] LABS: HEMATOCRIT 28.1 % (42-54); MEAN CORPUSCULAR HGB CONC 31.3 g/dL (32.0-36.0); MEAN CORPUSCULAR VOLUME 82.9 fL (79-99); RED BLOOD CELL COUNT(AUTO) 3.39 MIL/uL (4.50-6.20); RED CELL DISTRIBUTION WIDTH 16.1 % (11.0-15.5); WHITE BLOOD COUNT (AUTO) 11.7 K/uL (4.8-10.8)
[2020-05-21 05:10] LABS: CREATININE 0.8 mg/dL (0.5-1.5); MAGNESIUM 1.8 mg/dL (1.80-2.40); POTASSIUM 4.2 mmol/L (3.5-5.1)
[2020-05-21] MEDS: BACLOFEN 10 MG TABLET PO PRN ×2 (05:36→11:44)
[2020-05-21 08:22] VITALS: BP 90/49
[2020-05-21] MEDS: MIDODRINE HCL 5 MG TABLET PO SCH (08:31)
[2020-05-21] MEDS: PREDNISONE 20 MG TABLET PO SCH (08:31)
[2020-05-21] MEDS: GUAIFENESIN 600 MG TABLET.ER PO SCH (08:32)
[2020-05-21] MEDS: FLUTICASONE/VILANTEROL 1 EACH AER.POW.BA IH SCH (08:32)
[2020-05-21 11:29] VITALS: BP 98/64
[2020-05-21] MEDS ORDERED: LORAZEPAM 2 MG/ML 1 ML VIAL IVP PRN (12:15)
[2020-05-21] MEDS: MORPHINE 2 MG SYG IVP PRN (12:36)
[2020-05-21] MEDS ORDERED: FAMOTIDINE 20MG TAB PO SCH (13:10)
[2020-05-21] MEDS ORDERED: CALCIUM CARB 500MG CHEW TAB PO SCH (13:10)
[2020-05-21 16:00] VITALS: BP 110/73
[2020-05-21 20:24] VITALS: BP 142/86
[2020-05-21] MEDS: FAMOTIDINE 20MG TAB PO SCH (21:26)
[2020-05-21] MEDS: ROPINIROLE HCL 1 MG TABLET PO SCH (21:26)
[2020-05-21] MEDS: TRAZODONE HCL 50 MG TAB PO SCH (21:26)
[2020-05-22] MEDS: IPRATROPIUM/ALBUTEROL SULFATE 3 ML SOLUTION IH SCH ×4 (00:43→19:14)
[2020-05-22] MEDS: GUAIFENESIN-DM 200/20 MG 10 ML PO PRN (06:43)
[2020-05-22] MEDS: ACETAMINOPHEN 325 MG TAB PO PRN (06:44)
[2020-05-22 09:16] VITALS: BP 113/68
[2020-05-22] MEDS: FLUTICASONE/VILANTEROL 1 EACH AER.POW.BA IH SCH (09:51)
[2020-05-22] MEDS: FAMOTIDINE 20MG TAB PO SCH ×2 (09:52→21:20)
[2020-05-22] MEDS: BACLOFEN 10 MG TABLET PO SCH ×3 (12:08→21:20)
[2020-05-22] MEDS: MORPHINE 2 MG SYG IVP PRN ×3 (13:34→21:27)
[2020-05-22] MEDS ORDERED: CALCIUM CARB 500MG CHEW TAB PO PRN (14:00)
[2020-05-22 19:57] VITALS: BP 95/58
[2020-05-22] MEDS: TRAZODONE HCL 50 MG TAB PO SCH (21:20)
[2020-05-22] MEDS: ROPINIROLE HCL 1 MG TABLET PO SCH (21:20)
[2020-05-23] MEDS: IPRATROPIUM/ALBUTEROL SULFATE 3 ML SOLUTION IH SCH ×5 (00:10→23:31)
[2020-05-23] MEDS: MORPHINE 2 MG SYG IVP PRN ×3 (00:30→12:48)
[2020-05-23 08:00] VITALS: BP 108/73
[2020-05-23] MEDS: FLUTICASONE/VILANTEROL 1 EACH AER.POW.BA IH SCH (09:00)
[2020-05-23] MEDS: FAMOTIDINE 20MG TAB PO SCH ×2 (09:32→21:07)
[2020-05-23] MEDS: BACLOFEN 10 MG TABLET PO SCH ×3 (09:33→21:07)
[2020-05-23 20:15] VITALS: BP 99/68
[2020-05-23] MEDS: TRAZODONE HCL 50 MG TAB PO SCH (21:07)
[2020-05-23] MEDS: ROPINIROLE HCL 1 MG TABLET PO SCH (21:07)
[2020-05-24] MEDS: IPRATROPIUM/ALBUTEROL SULFATE 3 ML SOLUTION IH SCH ×3 (06:09→18:35)
[2020-05-24 07:56] VITALS: BP 103/60
[2020-05-24] MEDS: FAMOTIDINE 20MG TAB PO SCH ×2 (11:00→20:24)
[2020-05-24] MEDS: BACLOFEN 10 MG TABLET PO SCH ×3 (11:00→20:24)
[2020-05-24] MEDS: FLUTICASONE/VILANTEROL 1 EACH AER.POW.BA IH SCH (11:01)
[2020-05-24] MEDS: ONDANSETRON 4MG INJ IVP PRN (14:39)
[2020-05-24] MEDS: MORPHINE 2 MG SYG IVP PRN (14:40)
[2020-05-24] MEDS: TRAZODONE HCL 50 MG TAB PO SCH (20:24)
[2020-05-24] MEDS: ROPINIROLE HCL 1 MG TABLET PO SCH (20:24)
[2020-05-24 20:39] VITALS: BP 120/78
[2020-05-25] MEDS: IPRATROPIUM/ALBUTEROL SULFATE 3 ML SOLUTION IH SCH ×2 (00:14→06:15)
[2020-05-25] MEDS: FAMOTIDINE 20MG TAB PO SCH (08:41)
[2020-05-25] MEDS: BACLOFEN 10 MG TABLET PO SCH (08:42)
[2020-05-25] MEDS: FLUTICASONE/VILANTEROL 1 EACH AER.POW.BA IH SCH (08:42)
[2020-05-25] MEDS: MORPHINE 2 MG SYG IVP PRN (08:50)
[2020-05-25 10:33] VITALS: BP 124/78
== END 2020-05-25 10:45 | disposition hospice, home (50) | DRG 193 ==
LOC: EDH 00:12 → OBSVTOIN 02:19 → INTOOBSV 02:19 → 4AH 02:19 → 2AH 05-05 18:49 → 4DH 05-08 19:14 → 3AH 05-14 17:27
PROVIDERS: ADMIT Internal Medicine Critical Care Medicine; ATTEND Internal Medicine Critical Care Medicine
DX: J18.9 Pneumonia, unspecified organism (principal); J96.01 Acute respiratory failure with hypoxia; C34.90 Malignant neoplasm of unspecified part of unspecified bronchus or lung; J44.1 Chronic obstructive pulmonary disease with (acute) exacerbation; R64 Cachexia; I69.354 Hemiplegia and hemiparesis following cerebral infarction affecting left non-dominant side; J44.0 Chronic obstructive pulmonary disease with (acute) lower respiratory infection; E44.0 Moderate protein-calorie malnutrition; I25.10 Atherosclerotic heart disease of native coronary artery without angina pectoris; Z85.118 Personal history of other malignant neoplasm of bronchus and lung; D72.829 Elevated white blood cell count, unspecified; I10 Essential (primary) hypertension; Z59.0 Homelessness; R44.1 Visual hallucinations; K21.9 Gastro-esophageal reflux disease without esophagitis; Z51.5 Encounter for palliative care; R62.7 Adult failure to thrive; F41.9 Anxiety disorder, unspecified; G47.00 Insomnia, unspecified; G89.29 Other chronic pain; Z66 Do not resuscitate; Z79.52 Long term (current) use of systemic steroids; Z79.82 Long term (current) use of aspirin; Z79.899 Other long term (current) drug therapy; Z90.49 Acquired absence of other specified parts of digestive tract; Z20.822 Contact with and (suspected) exposure to COVID-19
CPT/HCPCS: 36415; 36600; 71045; 80048; 80053; 82435; 82803; 82947; 82948; 83605; 83690; 83735; 83880; 84132; 84295; 84484; 85018; 85025; 85027; 85610; 85730; 87040; 87426; 87804; 93005; 94640; 94667; 94668; 94760; 97039; 99291; G0378; J0456; J0696; J1100; J1650; J1885; J2405; J3230; J3480; J3490; J7030; J7050; Q0161; U0003